=== PATIENT | male | born 1935 | race Caucasian/White ===

== ENCOUNTER → 2020-04-20 | Outpatient (CLI) | payer MEDICARE | LOC: KOH-I 10:30 | DX: N17.9 Acute kidney failure, unspecified (principal); R93.41 Abnormal radiologic findings on diagnostic imaging of renal pelvis, ureter, or bladder | CPT/HCPCS: 76775 ==

== ENCOUNTER → 2020-08-03 | Outpatient (CLI) | payer MEDICARE | LOC: US 10:30 | PROVIDERS: Internal Medicine Nephrology | DX: N17.9 Acute kidney failure, unspecified (principal); N28.9 Disorder of kidney and ureter, unspecified | CPT/HCPCS: 36415; 80053; 82570; 84156; 89050 ==

== ENCOUNTER 2020-09-22 10:06 | Emergency (ER) | payer MEDICARE ==
[2020-09-22 10:59] LABS: HEMOGLOBIN 10.4 gm/dl (14.0-17.5); RED BLOOD COUNT 2.44 M/UL (4.20-5.50); WHITE BLOOD COUNT 5.9 K/UL (4.5-11.0)
== END 2020-09-22 16:00 | disposition home or self-care (01) ==
LOC: ER1 10:06
PROVIDERS: Physician Assistant
DX: N17.9 Acute kidney failure, unspecified (principal); Z87.442 Personal history of urinary calculi
CPT/HCPCS: 80048; 80053; 85025; 99284; J7030

== ENCOUNTER 2021-04-04 12:53 | Emergency (ER) | payer MEDICARE ==
[2021-04-04 13:51] LABS: HEMOGLOBIN 10.4 gm/dl (14.0-17.5); RED BLOOD COUNT 3.29 M/UL (4.20-5.50); WHITE BLOOD COUNT 11.3 K/UL (4.5-11.0)
== END 2021-04-04 17:35 | disposition home or self-care (01) ==
LOC: ER1 12:53
PROVIDERS: Physician Assistant Medical
DX: N18.9 Chronic kidney disease, unspecified (principal); Z87.891 Personal history of nicotine dependence; Z20.822 Contact with and (suspected) exposure to COVID-19
CPT/HCPCS: 71045; 80053; 81001; 82550; 82553; 83735; 83874; 83880; 84439; 84443; 84484; 85025; 85610; 93005; 99285; U0002